=== PATIENT | female | born 2000 | race Caucasian/White ===

== ENCOUNTER 2024-07-11 21:07 | Emergency (ER) | payer BC, SELFPAY ==
[2024-07-11 21:10] VITALS: BP 126/70
--- NOTE | 2024-07-11 22:33 | ED.GENMED ---
History of Present Illness
<Catrachita Chawla MD, Resident - Last Filed: 07/11/24 23:17>
General
Chief Complaint: Female Seo Intern/Gu symptoms
Source: patient
Exam Limitations: none
Time Seen by Provider: 07/11/24 21:34
Nursing documentation reviewed up to this point in time: agreed with
History of Present Illness
History of Present Illness:
24-year-old female with history of recurrent yeast infections who presented to the ED with vaginal complaints. Severe vulvovaginal pruritus, dryness, burning pain with intercourse and with post-coital urination x3 days. History of recurrent vaginal
infections since she was treated with abx for bronchitis in September. Has had near-monthly occurrence of vaginal yeast infections since then. She sees an Obgyn at [facility] and was last seen in May for STD/vaginitis testing and regular pap
test, all with normal results. She was also tested for diabetes/prediabetes with normal results. Last treated for vaginal candidiasis one month ago with Fluconazole 200mg Q72h x3 doses.
LMP 3 weeks ago.
She has been using boric acid suppositories and probiotics to prevent recurrence.
She takes Abena 1.5/30 OCP with no recent change in control method, no recent change in sexual partners.
She reports one episode of blood speckled discharge, but denies malodor, abnormal discharge, back pain, abdominal pain, fever, or nausea/vomiting.
Past History
<Ctarachita Chawla MD, Resident - Last Filed: 07/11/24 23:17>
Past History
ED Past Medical History: Other (Recurrent vaginal candidiasis)
ED Past Surgical History: Other (breast reduction)
Patient has exhibited threatening behavior?: No
Family History
Family History: Other (not pertinent)
Review of Systems
<Catrachita Chawla MD, Resident - Last Filed: 07/11/24 23:17>
Review of Systems
Allergies reviewed?: Yes
Constitutional: Denies fever
ABD/GI: Denies abdominal pain, nausea or vomiting
: Reports dysuria and other (vulvovaginal pruritus); Denies flank pain, bleeding or discharge
Phy Exam
<Catrachita Chawla MD, Resident - Last Filed: 07/11/24 23:17>
General Physical Exam
General Presentation: well appearing and no apparent distress
General age: appears stated age
General Skin: warm
General Mental: alert
Eye Exam
Eye Exam: conjunctiva normal and other (anicteric)
Cardiovascular Exam
Cardiovascular Exam: regular rate/rhythm, no edema, no gallop and no murmur
Heart Sounds: normal
Pulmonary Exam
Pulmonary Exam: lungs clear, no respiratory distress, no rales, no crackles, no rhonchi, no wheezing and no cough
Gastrointestinal Exam
Gastrointestinal Exam: normal bowel sounds, non tender, soft, non distended and other (no peritoneal signs)
Genitourinary Exam Female
Exam Female: no lesions
Vaginal Exam: normal
Vaginal Bleeding: none
Vaginal Discharge: other (normal)
Visual exam of cervix: other (no erythema, no lesions, non-friable)
Course
<Catrachita Chawla MD, Resident - Last Filed: 07/11/24 23:17>
Orders/Labs/Results
Orders:
Orders
07/11/24 22:41
Fluconazole [Diflucan] 200 mg PO NOW STA
07/11/24 22:42
Urinalysis Reflex To Culture Urgent
Date Specimen was Collected: 07/11/24
Time Specimen was Collected: 22:40
Chlamydia/GC by PCR Urgent
JEMIMA Source: Endo-Cervical
Specimen Description:
Source:: ENDOCERVICAL
Date Specimen was Collected: 07/11/24
Time Specimen was Collected: 22:40
Genital Culture Urgent
JEMIMA Source: Cervix
Specimen Description:
Date Specimen was Collected: 07/11/24
Time Specimen was Collected: 22:40
07/11/24 22:59
Fluconazole [Diflucan] 200 mg PO NOW STA
Vital Signs
Initial and Last Documented VS:
Initial Vital Signs
Temp Pulse Resp BP Pulse Ox
99.5 F 70 18 126/70 100
07/11/24 21:10 07/11/24 21:10 07/11/24 21:10 07/11/24 21:10 07/11/24 21:10
Last Documented Vital Signs
Temp Pulse Resp BP Pulse Ox
99.5 F 70 18 126/70 100
07/11/24 21:10 07/11/24 21:10 07/11/24 21:10 07/11/24 21:10 07/11/24 21:10
<Mehnaz Mims, DO - Last Filed: 07/11/24 23:18>
Orders/Labs/Results
Orders:
Orders
07/11/24 22:41
Fluconazole [Diflucan] 200 mg PO NOW STA
07/11/24 22:42
Urinalysis Reflex To Culture Urgent
Date Specimen was Collected: 07/11/24
Time Specimen was Collected: 22:40
Chlamydia/GC by PCR Urgent
JEMIMA Source: Endo-Cervical
Specimen Description:
Source:: ENDOCERVICAL
Date Specimen was Collected: 07/11/24
Time Specimen was Collected: 22:40
Genital Culture Urgent
JEMIMA Source: Cervix
Specimen Description:
Date Specimen was Collected: 07/11/24
Time Specimen was Collected: 22:40
07/11/24 22:59
Fluconazole [Diflucan] 200 mg PO NOW STA
Vital Signs
Initial and Last Documented VS:
Initial Vital Signs
Temp Pulse Resp BP Pulse Ox
99.5 F 70 18 126/70 100
07/11/24 21:10 07/11/24 21:10 07/11/24 21:10 07/11/24 21:10 07/11/24 21:10
Last Documented Vital Signs
Temp Pulse Resp BP Pulse Ox
99.5 F 70 18 126/70 100
07/11/24 21:10 07/11/24 21:10 07/11/24 21:10 07/11/24 21:10 07/11/24 21:10
<Catrachita Chawla MD, Resident - Last Filed: 07/11/24 23:17>
MDM/Problems Addressed
Differential Diagnosis Includes:
Vulvovaginal candidiasis, bacterial vaginosis, STI, UTI
MDM/Problems Addressed:
History suggestive of vulvovaginal candidiasis. No visible vulva/vaginal/cervical lesions, inflammation. Cervical discharge appears normal.
Will give Diflucan 200mg in ED with rx for 2 doses Q72h
Pt advised to discontinue boric acid suppositories in the meantime.
Close follow up with PCP or Obgyn
<Catrachita Chawla MD, Resident - Last Filed: 07/11/24 23:17>
*Critical Care Note
Total Time (30-74mins, 75-104mins- exclusive of procedures): Not Applicable
ED Attending Note
<Catrachita Chawla MD, Resident - Last Filed: 07/11/24 23:17>
-
Portions of this chart may have been created with voice recognition software.� Occasional wrong word or��sound alike� substitutions may have occurred due to the inherent limitations of voice recognition software.
<Mehnaz Mims DO - Last Filed: 07/11/24 23:18>
ED Attending Note
Patient seen and examined by attending physician: Yes
I performed a history and physical exam of patient and discussed management with resident, I reviewed resident's note and agree with documented findings and plan of care.: Yes
ED Attending Note:
This is a 24-year-old female who has history of recurrent yeast infections beginning October of this year after taking an antibiotic in September for a URI. Has been following with [employer]IVE and treated with several courses of Diflucan the last of which
approximately 6 weeks ago.
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 Negative for BV.
She complains of moderate vaginal itching that is most noted with sex and occasionally after voiding. She has had no vaginal discharge, no dysuria no urgency nor hematuria, no abdominal nor back pain, no fever nor chills. She admits that vaginal
itching is not as intense as with previous yeast infections.
She does admit to feeling mildly dry and irritated during sexual intercourse. She has not been using lubricants.
She has however been using boric acid suppositories intravaginally.
Denies risk of , last menstrual period normal and on time 3 weeks ago.
1 previous episode of UTI during high school years and current symptoms are quite different from UTI symptoms she experienced at that time.
Currently takes no medicines on a daily basis.
24-year-old overweight female is bright and alert, pleasant, appears her stated age and appears in no acute distress.
Appears euvolemic.
Abdomen is rotund, soft, nontender.
Vaginal speculum exam by Dr. Chawla under my direct supervision. External genitalia within normal limits. There is no ulcerations nor erythema nor mucosal irritation. Cervix is nulliparous, no cervical irritation, erosions nor discharge, vaginal
mucosa without irritation nor discharge.
At this point no convincing evidence of candidal vaginitis. Patient may have an element of mild vaginal irritation related to boric acid suppositories which I recommend she discontinue. We did discuss that the vagina is a self-cleaning organ and
less is best.
She may also have an element of mild vaginal dryness as cause for irritation during sexual intercourse and recommend she trial a vaginal lubricant such as K-Y jelly.
Will check vaginal culture, and for completeness sake GC chlamydia culture as well as urinalysis.
Due to history of recurrent candidal yeast infection she may have an element of early candidal vaginitis as and thus reasonable to treat with Diflucan and await culture results.
Prompt follow-up with [employer] RE[employer]ENT[employer]IVE for recheck.
Discharge Plan
Departure
Patient Disposition: Home (Routine Discharge)
Discharge Problem:
Vulvovaginal candidiasis
Instructions: Vaginal Yeast Infection, Adult ED
Referrals:
UNKNOWN - PT DOES,NOT KNOW [Family Provider] -
Interventions
Interventions:
*Risk Screen - Suicide Last Done: 07/11/24 21:10
*Neglect/Abuse Screening Last Done: 07/11/24 21:10
ED-Female Genitourinary Assessment Last Done: 07/11/24 22:13
Discharge Date and Time
Print Language: BRITISH
[2024-07-11 22:50] LABS: Urine Albumin Negative (Neg - Trace); Urine Bilirubin Negative (Negative); Urine Character Clear (Clear); Urine Color Straw; Urine Glucose Negative (Negative); Urine Ketone Negative (Negative); Urine Leukocyte Negative (Negative); Urine Nitrite Negative (Negative); Urine Occult Blood Negative (Negative); Urine Urobilinogen Negative (Neg - 1+)
[2024-07-11] MEDS: DIFLUCAN 200 MG PO (23:09)
== END 2024-07-11 23:19 | disposition home or self-care (01) ==
LOC: EMR 21:07
PROVIDERS: EMERGENCY PHYSICIAN Emergency Medicine
DX: B37.31 Acute candidiasis of vulva and vagina (principal)
CPT/HCPCS: 99282; 81003; 87070; 87491; 87591